=== PATIENT | male | born 1990 | race Caucasian/White ===

== ENCOUNTER 2020-04-27 12:07 | Emergency (ER) | payer OTHER ==
[~2020-04-27] VITALS: Ht 170.2 cm; Wt 61.3 kg
--- NOTE | 2020-04-27 12:39 | NUR ---
PT TO ROOM NOW. AMBULATES WITH A STEADY GAIT. PT IN GOWN AND UA CUP GIVEN. LAB AT BEDSIDE.
[2020-04-27 12:59] LABS: BASOPHILS # (AUTO) 0.01 x10^3/uL (0-0.1); BASOPHILS % (AUTO) 0 % (0-1); EOSINOPHILS # (AUTO) 0.17 x10^3/uL (0-0.4); EOSINOPHILS % (AUTO) 2 % (1-7); LYMPHOCYTES # (AUTO) 1.29 x10^3/uL (1-3.4); LYMPHOCYTES % (AUTO) 18 % (22-44); MD NO; MEAN CORPUSCULAR HEMOGLOBIN 30.3 pg (27.5-34.5); MEAN CORPUSCULAR HGB CONC 34.5 g/dL (33.2-36.2); MEAN CORPUSCULAR VOLUME 87.7 fL (81-97); MEAN PLATELET VOLUME 8.8 fL (7.4-10.4); MONOCYTES # (AUTO) 0.49 x10^3/uL (0.2-0.8); MONOCYTES % (AUTO) 7 % (2-9); NEUTROPHILS # (AUTO) 5.27 x10^3/uL (1.8-6.8); NEUTROPHILS % (AUTO) 73 % (42-75); PLATELET COUNT 248 x10^3/uL (130-400); RED BLOOD COUNT 5.57 x10^6/uL (4.38-5.82); RED CELL DISTRIBUTION WIDTH 12.5 % (9.4-14.8)
[2020-04-27] MEDS ORDERED: SODIUM CHLORIDE 0.9% 1,000ML IV ONE (13:00)
[2020-04-27] MEDS ORDERED: MORPHINE SULFATE 4 MG/ML, 1ML IVPush PRN (13:00)
[2020-04-27] MEDS ORDERED: ONDANSETRON 2MG/ML, 2ML IVPush ONE (13:00)
[2020-04-27 13:09] LABS: ALANINE AMINOTRANSFERASE 42 U/L (12-78); CALCIUM 9.1 mg/dL (8.5-10.1); CHLORIDE 108 mmol/L (98-107); CREATININE 1.01 mg/dL (0.7-1.3)
[2020-04-27 13:12] LABS: ALKALINE PHOSPHATASE 64 U/L (45-117); BILIRUBIN,TOTAL 0.6 mg/dL (0.2-1.0); TOTAL PROTEIN 7.5 g/dL (6.4-8.2)
[2020-04-27 13:16] LABS: ANION GAP 4 mmol/L (5-15)
--- NOTE | 2020-04-27 13:18 | NUR ---
REPORT FROM CHELO, ASSUME CARE OF PT AT THIS TIME. ED MEDIC IN TO START IV.
[2020-04-27] MEDS ORDERED: ONDANSETRON 2MG/ML, 2ML ONE (13:21)
[2020-04-27] MEDS ORDERED: MORPHINE SULFATE 4 MG/ML, 1ML ONE (13:22)
--- NOTE | 2020-04-27 13:34 | NUR ---
PT MEDICATED PER EMAR FOR 05/07 R ABD/FLANK PAIN AND NAUSEA. BP CUFF, PULSE OX IN PLACE, VSS/UPDATED IN COMPUTER. URINE COLLECTED/SENT TO LAB. PT UPDATED ON POC. CALL LIGHT WITHIN REACH.
[2020-04-27 13:43] LABS: MICROSCOPIC AUTO
--- NOTE | 2020-04-27 13:54 | NUR ---
ALL RESULTS BACK, PT FOR RECHECK.
--- NOTE | 2020-04-27 15:06 | NUR ---
TASK RN: Discharge instructions given. All questions and concerns addressed. Patient ambulatory with a steady gait. Belongings with patient.
[2020-04-27 15:13] VITALS: BP 122/80
== END 2020-04-27 15:15 | disposition home or self-care (01) ==
LOC: ED 14:34
DX: R10.31 Right lower quadrant pain (principal); M54.5 Low back pain; R11.0 Nausea
CPT/HCPCS: 36415; 74176; 80053; 81001; 83690; 85025; 96374; 96375; 99284; J2270; J2405; J7030

== ENCOUNTER 2020-05-26 15:03 | Emergency (ER) | payer OTHER ==
[~2020-05-26] VITALS: Ht 170.2 cm; Wt 62.0 kg
[~2020-05-26 15:03] MED LIST: APIX5TAB PO
--- NOTE | 2020-05-26 16:30 | NUR ---
IMAGE EDITOR: PT WALKED BACK FROM LOBBY TO ROOM AT THIS TIME.
--- NOTE | 2020-05-26 17:20 | NUR ---
PT HAS CO OF KIDNEY PAIN. PT STATES HE HAD BLOOD CLOT IN KIDNEY PAIN BEFORE. SIMILAR SYMPTOMS LABS/IV ESTABLISHED.
[2020-05-26 17:37] LABS: BASOPHILS # (AUTO) 0.03 x10^3/uL (0-0.1); BASOPHILS % (AUTO) 1 % (0-1); EOSINOPHILS # (AUTO) 0.11 x10^3/uL (0-0.4); EOSINOPHILS % (AUTO) 2 % (1-7); LYMPHOCYTES # (AUTO) 1.39 x10^3/uL (1-3.4); LYMPHOCYTES % (AUTO) 25 % (22-44); MD NO; MEAN CORPUSCULAR HEMOGLOBIN 29.1 pg (27.5-34.5); MEAN CORPUSCULAR HGB CONC 33.7 g/dL (33.2-36.2); MEAN CORPUSCULAR VOLUME 86.2 fL (81-97); MEAN PLATELET VOLUME 9.3 fL (7.4-10.4); MONOCYTES # (AUTO) 0.52 x10^3/uL (0.2-0.8); MONOCYTES % (AUTO) 9 % (2-9); NEUTROPHILS % (AUTO) 64 % (42-75); PLATELET COUNT 242 x10^3/uL (130-400); RED BLOOD COUNT 5.75 x10^6/uL (4.38-5.82); RED CELL DISTRIBUTION WIDTH 12.6 % (9.4-14.8)
[2020-05-26 17:45] LABS: ALBUMIN 4.1 g/dL (3.4-5.0); ANION GAP 6 mmol/L (5-15); CALCIUM 9.4 mg/dL (8.5-10.1); CHLORIDE 105 mmol/L (98-107); CREATININE 0.96 mg/dL (0.7-1.3)
[2020-05-26 18:06] LABS: MICROSCOPIC NOT IND
--- NOTE | 2020-05-26 18:37 | NUR ---
PT TO CTA
[2020-05-26] MEDS ORDERED: OMNIPAQUE 350 MG/ML, 100ML BOTTLE ONE (18:40)
--- NOTE | 2020-05-26 18:46 | NUR ---
REPORT TO NANCY
[2020-05-26 19:38] VITALS: BP 100/59
== END 2020-05-26 20:01 | disposition home or self-care (01) ==
LOC: ED 17:54
DX: R10.9 Unspecified abdominal pain (principal); N28.0 Ischemia and infarction of kidney; Z79.899 Other long term (current) drug therapy
CPT/HCPCS: 36415; 74174; 80048; 81003; 82040; 85025; 99285; Q9967

== ENCOUNTER → 2020-08-20 | Outpatient (CLI) | payer OTHER | END | disposition home or self-care (01) | LOC: STAR 10:35 | PROVIDERS: ATTEND Anesthesiology | DX: Z01.812 Encounter for preprocedural laboratory examination (principal); Z20.828 Contact with and (suspected) exposure to other viral communicable diseases | CPT/HCPCS: 36415; 87635 ==

== ENCOUNTER 2020-08-24 10:46 | Day surgery (SDC) | payer OTHER ==
[~2020-08-24] VITALS: Ht 170.2 cm; Wt 61.4 kg
[~2020-08-24 10:46] MED LIST changes: +PROPOFOL 10 MG/ML, 50ML ONE
[2020-08-24 11:46] VITALS: BP 120/83
[2020-08-24] MEDS ORDERED: APIX5TAB PO (11:54)
[2020-08-24] MEDS ORDERED: SODIUM CHLORIDE 0.9% 1,000 ML IV ONE (12:00)
== END 2020-08-24 15:43 | disposition home or self-care (01) ==
LOC: CACL 10:46
PROVIDERS: ATTEND Internal Medicine Cardiovascular Disease
DX: N28.0 Ischemia and infarction of kidney (principal); I36.1 Nonrheumatic tricuspid (valve) insufficiency; Z79.01 Long term (current) use of anticoagulants
CPT/HCPCS: 93312; 93325; J2704